=== PATIENT | female | born 1985 | race Caucasian/White ===

== ENCOUNTER 2016-09-29 19:46 | Emergency (ER) | payer MEDICARE, BC ==
[2016-09-29 20:08] VITALS: BP 138/99
[2016-09-29] MEDS ORDERED: Ketorolac 60 MG/2 ML SDV IM ONE (20:17)
[2016-09-29] MEDS ORDERED: Cyclobenzaprine 10 MG Tab PO ONE (20:18)
--- NOTE | 2016-09-29 20:25 | EDM.PDOC ---
ED HPI GENERAL MEDICAL PROBLEM - General Chief Complaint: Neck Problem Stated Complaint: NECK PAIN ILLNESS Time Seen by Provider: 09/29/16 20:20 Source of Information: Reports: Patient History Limitations: Reports: No Limitations - History of Present Illness INITIAL COMMENTS - FREE TEXT/NARRATIVE: pt arrived with pain in the rt side of the neck extending over the rt shoulder. Onset: Other ( pt fell out of bed last nite while she was having a seizure. ) Duration: Hour(s): Location: Reports: Other ( rt cervical area. ) Associated Symptoms: Reports: Other ( pain in rt neck area extending over the shoulder. ) - Related Data Allergies Allergy/AdvReac Type Severity Reaction Status Date / Time No Known Allergies Allergy Verified 09/29/16 20:08 Home Meds: Home Meds Venlafaxine [Effexor XR] 75 mg PO QPM 03/20/15 [History] levETIRAcetam [Keppra] 1,000 mg PO BID 03/20/15 [History] Acetaminophen [Tylenol] 1,000 mg PO ASDIRECTED 05/21/15 [History] Ibuprofen 800 mg PO ASDIRECTED PRN 05/21/15 [History] Levothyroxine Sodium [Levothyroxine Sodium] 137 mcg PO DAILY 09/23/15 [History] tiZANidine [Zanaflex] 2 mg PO Q8HR PRN 09/29/16 [History] Past Medical History Musculoskeletal History: Reports: Back Pain, Chronic Neurological History: Reports: Seizure Other Neuro History: pituitary tumor removal Psychiatric History: Reports: Anxiety, Depression Endocrine/Metabolic History: Reports: Hypothyroidism - Infectious Disease History Infectious Disease History: Reports: Chicken Pox - Past Surgical History HEENT Surgical History: Reports: Other (See Below) Other HEENT Surgeries/Procedures: brain surgery, Endocrine Surgical History: Reports: Pituitary Tumor Resection Social & Family History - Family History Family Medical History: Noncontributory - Tobacco Use Smoking Status *Q: Never Smoker Second Hand Smoke Exposure: No - Caffeine Use Caffeine Use: Reports: Soda - Recreational Drug Use Recreational Drug Use: No - Living Situation & Occupation Living situation: Reports: , with Spouse ED ROS GENERAL - Review of Systems Review Of Systems: See Below Constitutional: Reports: No Symptoms HEENT: Reports: No Symptoms Respiratory: Reports: No Symptoms Cardiovascular: Reports: No Symptoms Endocrine: Reports: No Symptoms GI/Abdominal: Reports: No Symptoms : Reports: No Symptoms Musculoskeletal: Reports: Other (pt is a known seizure pt and she fell out of bed last nite. ) Skin: Reports: No Symptoms ED EXAM, UPPER BACK/NECK PAIN - Physical Exam Exam: See Below Text/Narrative:: Pt arrived with pain in the rt post cervical area. The pain extends slightly over the shoulder. Exam Limited By: No Limitations General Appearance: Alert, Anxious Ears Exam: Normal TMs Nose Exam: Normal Inspection Throat/Mouth Exam: Normal Inspection Head Exam: Atraumatic Neck Exam: Muscle Spasm, Painful Range of Motion, Other ( pt appears to have muscle spasm on the rt cervical area. ) Cardiovascular/Respiratory: Regular Rate, Rhythm GI/Abdominal: Soft, Non-Tender Rectal (Female) Exam: Deferred Back Exam: Normal Inspection Extremities: Normal Inspection Course - Vital Signs Last Recorded V/S: Last Vital Signs Temp 37.2 C 09/29/16 20:06 Pulse 95 09/29/16 20:06 Resp 16 09/29/16 20:06 BP 138/99 H 09/29/16 20:06 Pulse Ox 99 09/29/16 20:06 - Orders/Labs/Meds Orders: Active Orders 24 hr Category Date Time Status Cervical Spine Min 4V [CR] Stat Exams 09/29/16 20:18 Taken Meds: Medications Discontinued Medications Generic Name Dose Route Start Last Admin Trade Name Acostaq PRN Reason Stop Dose Admin Cyclobenzaprine HCl 10 mg 09/29/16 20:18 09/29/16 20:22 Flexeril PO 09/29/16 20:19 10 mg ONETIME ONE Administration Ketorolac Tromethamine 60 mg 09/29/16 20:17 09/29/16 20:22 Toradol IM 09/29/16 20:18 60 mg ONETIME ONE Administration - Re-Assessments/Exams Free Text/Narrative Re-Assessment/Exam: 09/29/16 20:46 pt was given torodol 60mg im and flexeril. Pt does have zanaflex at home. Xrays were obtained of the neck which shows good alignment and no fractures. Departure - Departure Time of Disposition: 20:47 Disposition: Home, Self-Care 01 Condition: fair Clinical Impression: Cervical paraspinal muscle spasm - Discharge Information Forms: ED Department Discharge Care Plan Goals: ice to area, tub soak and follow with a ice pack, stretching exercises, resume the zanaflex that she has at home, motrin 600mg tid, norco 5/325 q6h prn for pain - My Orders Last 24 Hours: My Active Orders 09/29/16 20:18 Cervical Spine Min 4V [CR] Stat - Assessment/Plan Last 24 Hours: My Active Orders 09/29/16 20:18 Cervical Spine Min 4V [CR] Stat
--- NOTE | 2016-10-02 08:30 | CR ---
Cervical Spine Min 4V HISTORY: pain in neck FINDINGS: Vertebral body alignment is satisfactory. Alignment remains satisfactory with flexion and extension. No compression fracture or disk space narrowing is seen. Spinous processes, posterior elements, and facet joints appear intact and in satisfactory alignment. No odontoid abnormality can be seen. Prev ertebral soft tissues appear normal. IMPRESSION: No acute cervical spine abnormality identified.
== END 2016-09-29 21:57 | disposition home or self-care (01) ==
LOC: JP.ED 19:46
DX: M62.838 Other muscle spasm (principal); F41.9 Anxiety disorder, unspecified; F32.9 Major depressive disorder, single episode, unspecified; E03.9 Hypothyroidism, unspecified; Z98.890 Other specified postprocedural states; Z79.899 Other long term (current) drug therapy; W06.XXXA Fall from bed, initial encounter
CPT/HCPCS: 72050; 96372; 99283; A9270; J1885